=== PATIENT | male | born 1990 | race Caucasian/White ===

== ENCOUNTER → 2019-03-17 | Outpatient (CLI) | payer OTHER ==
--- NOTE | 2019-03-17 09:06 | RADIOLOGY REPORT (SQ) ---
EXAM DESCRIPTION: DUPLEX ART/DOMINGO FLOW COMPLETE COMPLETED DATE/TIME: 03/17/2019 8:32 am REASON FOR STUDY: HIPOLITO (I70.1) I70.1 ATHEROSCLEROSIS OF RENAL ARTERY COMPARISON: None. TECHNIQUE: Realtime and static grayscale images acquired. Selected color Doppler, velocities and spe ctral images recorded. LIMITATIONS: None. FINDINGS: RIGHT KIDNEY: RENAL ARTERY VELOCITIES: Origin not visualized. Mid artery 118 cm/sec. Hilum 133 cm/sec. Segmental artery velocity 72 cm/sec. RENAL VEIN: Color doppler flow present, patent. VELOCITY RATIO: 0.8. Normal waveforms. KIDNEY: Normal in size measuring 10.4 cm No significant pathology. LEFT KIDNEY: RENAL ARTERY VELOCITIES: Origin not visualized. Mid artery 104 cm/sec. Hilum 130 cm/sec. Segmental artery velocity 55 cm/sec. RENAL VEIN: Color doppler flow present, patent. VELOCITY RATIO: 0.79. Normal waveforms. KIDNEY: Normal in size measuring 11.2 cm No significant pathology. BLADDER: Normal. OTHER: Aorto velocity 165 cm/s. IMPRESSION: NO DOPPLER EVIDENCE OF HEMODYNAMICALLY SIGNIFICANT RENAL ARTERY STENOSIS. COMMENT: NORMAL RENAL ARTERY/AORTA VELOCITY RATIO IS LESS THAN OR EQUAL TO 3.5. TECHNICAL DOCUMENTATION: JOB ID: [id number] [employer]- All Rights Reserved Reading location - IP/workstation name: [email or web address]
== END ==
LOC: RAD 07:16
PROVIDERS: ATTEND General Practice
DX: I70.1 Atherosclerosis of renal artery (principal)
CPT/HCPCS: 93975